=== PATIENT | female | born 1955 | race Caucasian/White ===

== ENCOUNTER 2019-08-22 18:21 | Emergency (ER) | payer MEDICARE, OTHER ==
[~2019-08-22] VITALS: Ht 170.2 cm; Wt 115.0 kg
[2019-08-22 18:31] VITALS: BP 158/86
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
[2019-08-22] MEDS ORDERED: LISI2.5T PO (18:46)
[2019-08-22] MEDS ORDERED: ATOR-2 PO (18:46)
[2019-08-22] MEDS ORDERED: GABA300C10 PO (18:46)
[2019-08-22] MEDS ORDERED: HYDROcodone/APAP 5/325 TABLET PO ONE (19:00)
[2019-08-22] MEDS ORDERED: HYDROcodone/APAP 5/325 TABLET ONE (20:14)
--- NOTE | 2019-08-22 20:18 | NUR ---
Pt medicated per emar for pain. Pt tolerated well.
--- NOTE | 2019-08-22 21:08 | NUR ---
Patient/Caregiver given discharge instructions and they have confirmed that they understand the instructions. Patient ambulatory with steady gait.
[2019-08-22] MEDS ORDERED: HYDROmorphone 1 MG/ML, 1ML INJ ONE (21:18)
== END 2019-08-22 21:10 | disposition home or self-care (01) ==
LOC: ED 20:50
DX: S16.1XXA Strain of muscle, fascia and tendon at neck level, initial encounter (principal); S39.012A Strain of muscle, fascia and tendon of lower back, initial encounter; S76.012A Strain of muscle, fascia and tendon of left hip, initial encounter; Z72.89 Other problems related to lifestyle; V49.49XA Driver injured in collision with other motor vehicles in traffic accident, initial encounter; Y93.89 Activity, other specified; Y92.413 State road as the place of occurrence of the external cause; Y99.8 Other external cause status
CPT/HCPCS: 70450; 72125; 99284